=== PATIENT | male | born 1965 | race African-American/Black ===

== ENCOUNTER 2017-07-13 21:03 | Emergency (ER) | payer OTHER ==
[~2017-07-13] VITALS: Ht 198.1 cm; Wt 108.9 kg
[~2017-07-13 21:03] MED LIST: CARI350T PO; NAPR-1164 PO; OXYC-133 PO
--- NOTE | 2017-07-13 22:50 | NUR ---
MSE DONE BY DR NEWELL AT BEDSIDE ROOM O5B. PATIENT A & O X4.
[2017-07-13] MEDS ORDERED: LIDOCAINE HCL 1% 20 ML VIAL IJ ONE (23:00)
[2017-07-13] MEDS ORDERED: predniSONE 20 MG TABLET PO ONE (23:00)
--- NOTE | 2017-07-13 23:20 | NUR ---
DR ROQUE AT BEDSIDE NOTED WOUND ON THE BACK WAS DRAINED PATIENT TOLERATED WELL NOT IN ANY DISTRESS NOTED. MICHAEL CONTINUE TO MONITOR PATIENT.
[2017-07-13] MEDS ORDERED: predniSONE 20 MG TABLET ONE (23:34)
[2017-07-13] MEDS ORDERED: OXYCODONE/APAP 5-325 MG TABLET PO ONE (23:45)
[2017-07-14] MEDS ORDERED: OXYCODONE/APAP 5-325 MG TABLET ONE
--- NOTE | 2017-07-14 | NUR ---
PER DR ROQUE PATIENT OK TO DC HOME. PATIENT NOTED AMBULATE WITH NORMAL STEADY GAIT.
[2017-07-14 00:06] VITALS: BP 115/79
--- NOTE | 2017-07-14 00:06 | NUR ---
Patient discharged to home in stable conditon. Written and verbal after care instructions given. Patient verbalizes understanding of instructions.
== END 2017-07-14 00:06 | disposition home or self-care (01) ==
LOC: ER 21:03
DX: L72.3 Sebaceous cyst (principal); B02.9 Zoster without complications
CPT/HCPCS: 10060; 99283; A4217; A4663; J3490; J7512

== ENCOUNTER 2017-08-28 12:22 | Emergency (ER) | payer OTHER ==
[~2017-08-28] VITALS: Ht 190.5 cm; Wt 113.4 kg
[2017-08-28] MEDS ORDERED: diphenhydrAMINE 50 MG CAPSULE PO ONE (12:45)
--- NOTE | 2017-08-28 12:55 | NUR ---
Patient discharged to home in stable conditon. Written and verbal after care instructions given. Patient verbalizes understanding of instructions.
[2017-08-28] MEDS ORDERED: diphenhydrAMINE 50 MG CAPSULE ONE (13:07)
== END 2017-08-28 12:56 | disposition home or self-care (01) ==
LOC: ER 12:22
DX: B37.2 Candidiasis of skin and nail (principal)
CPT/HCPCS: A4663; Q0163

== ENCOUNTER 2017-10-09 23:19 | Emergency (ER) | payer OTHER ==
[~2017-10-09] VITALS: Ht 198.1 cm; Wt 105.2 kg
--- NOTE | 2017-10-10 00:36 | NUR ---
Patient discharged to home in stable conditon. Written and verbal after care instructions given. Patient verbalizes understanding of instructions. WALKED OUT OF ER WITH NO DISTRESS NOTED
== END 2017-10-10 00:37 | disposition home or self-care (01) ==
LOC: ER 23:23
DX: S50.12XA Contusion of left forearm, initial encounter (principal); Z79.1 Long term (current) use of non-steroidal anti-inflammatories (NSAID); Z79.891 Long term (current) use of opiate analgesic; Z79.899 Other long term (current) drug therapy; W57.XXXA Bitten or stung by nonvenomous insect and other nonvenomous arthropods, initial encounter; Y93.89 Activity, other specified; Y92.89 Other specified places as the place of occurrence of the external cause; Y99.8 Other external cause status
CPT/HCPCS: 73090; A4663

== ENCOUNTER 2019-04-16 13:18 | Emergency (ER) | payer MEDICAID, OTHER ==
[~2019-04-16] VITALS: Ht 198.1 cm; Wt 108.9 kg
--- NOTE | 2019-04-16 14:20 | NUR ---
Patient discharged to home in stable conditon. Written and verbal after care instructions given. Patient verbalizes understanding of instructions.pt walks in steady gait.
== END 2019-04-16 14:25 | disposition home or self-care (01) ==
LOC: ER 13:20
DX: G56.31 Lesion of radial nerve, right upper limb (principal); F32.9 Major depressive disorder, single episode, unspecified; Z79.899 Other long term (current) drug therapy
CPT/HCPCS: A4663

== ENCOUNTER 2019-08-14 09:05 | Emergency (ER) | payer OTHER ==
[~2019-08-14] VITALS: Ht 198.1 cm; Wt 113.4 kg
--- NOTE | 2019-08-14 09:24 | NUR ---
Dr José at the bedside for MSE.
[2019-08-14] MEDS ORDERED: KETOROLAC TROMETHAMINE 60 MG INJ IM ONE ×2 (09:30→09:33)
[2019-08-14] MEDS ORDERED: methylPREDNISolone ACETATE 40 MG VIAL IM ONE (09:30)
[2019-08-14] MEDS ORDERED: HYDROMORPHONE 1 MG/1 ML DISP.SYRIN IM ONE (09:30)
[2019-08-14] MEDS ORDERED: methylPREDNISolone SOD SUCC 40 MG/ML VIAL ONE (09:33)
--- NOTE | 2019-08-14 09:36 | NUR ---
ASKED PT TO CALL FOR RIDE PER MD ORDER. OFFERED THE HOSPITAL PHONE. PT STEPPED OUT SIDE TO BRING HIS CELL PHONE TO CALL .
--- NOTE | 2019-08-14 09:41 | NUR ---
PT BACK IN THE ROOM CALLING FOR RIDE.
[2019-08-14] MEDS ORDERED: HYDROMORPHONE 2 MG/1 ML DISP.SYRIN ONE (09:44)
--- NOTE | 2019-08-14 10:41 | NUR ---
PT DAUGHTER HERE TO TAKE THE PT HOME.Patient discharged to home in stable conditon. Written and verbal after care instructions given. Patient verbalizes understanding of instructions.pt walks in steady gait. pt says the pain is down to toleralable level.
[2019-08-14 10:43] VITALS: BP 134/94
== END 2019-08-14 10:44 | disposition home or self-care (01) ==
LOC: ER 09:05
DX: G89.29 Other chronic pain (principal); M54.5 Low back pain; M54.17 Radiculopathy, lumbosacral region; F32.9 Major depressive disorder, single episode, unspecified; Z79.899 Other long term (current) drug therapy
CPT/HCPCS: 96372 ×3; 99283; J1170; J1885; J2920; A4663

== ENCOUNTER 2020-01-30 09:31 | Emergency (ER) | payer OTHER ==
[~2020-01-30] VITALS: Ht 198.1 cm; Wt 108.9 kg
--- NOTE | 2020-01-30 09:47 | NUR ---
Dr Haji at the bedside for MSE.
[2020-01-30] MEDS ORDERED: ONDANSETRON 4 MG/2 ML VIAL ONE (09:56)
[2020-01-30] MEDS ORDERED: HYDROMORPHONE 2 MG/1 ML DISP.SYRIN ONE (09:56)
[2020-01-30] MEDS ORDERED: ONDANSETRON 4 MG/2 ML VIAL IM ONE (10:00)
[2020-01-30] MEDS ORDERED: HYDROMORPHONE 1 MG/1 ML DISP.SYRIN IM ONE (10:00)
[2020-01-30 10:46] VITALS: BP 133/83
--- NOTE | 2020-01-30 10:47 | NUR ---
Patient discharged to home in stable condition. Written and verbal after care instructions given. Patient verbalizes understanding of instructions. Stressed follow up or return to ER for worsening s/s. Pt left ER w/ steady gait.
== END 2020-01-30 10:48 | disposition home or self-care (01) ==
LOC: ER 09:31
DX: G89.29 Other chronic pain (principal); M54.5 Low back pain; M51.36 Other intervertebral disc degeneration, lumbar region
CPT/HCPCS: 72100; 96372 ×2; 99284; J1170; J2405; A4663

== ENCOUNTER 2022-08-30 13:52 | Emergency (ER) | payer OTHER ==
[~2022-08-30] VITALS: Ht 198.1 cm; Wt 108.9 kg
[2022-08-30 14:56] LABS: HEMATOCRIT 38.7 % (36.7-47.1); MEAN CORPUSCULAR HEMOGLOBIN 31.8 uug (23.8-33.4); MEAN CORPUSCULAR VOLUME 94.6 fL (73.0-96.2); PLATELET COUNT (AUTO) 205 K/uL (152-348)
[2022-08-30] MEDS ORDERED: ALBUTEROL SULFATE 2.5 MG/3 ML NEBU ONE (14:56)
[2022-08-30] MEDS ORDERED: ALBUTEROL SULFATE 2.5 MG/3 ML NEBU NEB ONE (15:00)
--- NOTE | 2022-08-30 15:02 | NUR ---
PT IS IN ROOM #1B. DR WEAVER EVALUATED THE PT.
[2022-08-30 15:34] LABS: CARBON DIOXIDE 28 mmol/L (21-32); CHLORIDE 106 mmol/L (98-107); CREATININE 1.3 mg/dL (0.6-1.3); GLUCOSE 96 mg/dL (74-106); POTASSIUM 4.3 mmol/L (3.5-5.1); UREA NITROGEN, BLOOD 11 mg/dL (7-18)
[2022-08-30] MEDS ORDERED: KETOROLAC TROMETHAMINE 15 MG INJ IM ONE (16:30)
[2022-08-30] MEDS ORDERED: KETOROLAC TROMETHAMINE 15 MG INJ ONE (16:39)
[2022-08-30] MEDS ORDERED: SWABABLE VALVE TRANSFER SET EA MC ONE (16:59)
[2022-08-30] MEDS ORDERED: IOHEXOL 350 100 ML INFUS..BTL ONE (16:59)
[2022-08-30] MEDS ORDERED: IV NORMAL SALINE 250 ML IV ONE (16:59)
[2022-08-30] MEDS ORDERED: ALBU18HF2 INH (18:12)
[2022-08-30] MEDS ORDERED: PRED20TA PO (18:12)
--- NOTE | 2022-08-30 18:40 | NUR ---
PT WAS D/C'd TO HOME. D/C INSTRUCTIONS GIVEN TO THE PT BY DR WEAVER.
[2022-08-30 18:41] VITALS: BP 132/75
== END 2022-08-30 18:50 | disposition home or self-care (01) ==
LOC: ER 13:52
DX: R07.9 Chest pain, unspecified (principal); J98.01 Acute bronchospasm; R05.9 Cough, unspecified; Z20.822 Contact with and (suspected) exposure to COVID-19; G89.29 Other chronic pain; Z28.310 Unvaccinated for COVID-19; R79.1 Abnormal coagulation profile; I51.7 Cardiomegaly; R03.0 Elevated blood-pressure reading, without diagnosis of hypertension
CPT/HCPCS: 99285; 96374; 71275; 71045; 87426; 87804 ×2; 80048; 85025; 85379; 84484; 36415; 93005; 94640; J1885; Q9967; J7040; A4663